=== PATIENT | male | born 1980 | race Caucasian/White ===

== ENCOUNTER 2022-03-23 17:13 | Outpatient (REF) | payer BC, SELFPAY ==
[2022-03-23 18:34] LABS: COMMENT (LAB VIEW ONLY) 66.85 mg/dL; Microalb ug/mg Crea 49.4 ug/mg Cr
== END 2022-03-23 17:14 | disposition home or self-care (01) ==
LOC: NCHCN 17:13
PROVIDERS: Visit Provider Registered Nurse
DX: E11.9 Type 2 diabetes mellitus without complications (principal)
CPT/HCPCS: 82043; 82570

== ENCOUNTER → 2022-03-30 02:47 | Outpatient (CLI) | payer BC, SELFPAY ==
--- NOTE | 2022-03-30 | DI.RAD_ITS ---
Exam(s) XR CERVICAL SPINE COMP 4-5V EXAM: XR CERVICAL SPINE COMP 4-5V CLINICAL HISTORY: NECK PAIN, M54.2,UPPER TRAP PAIN,. TECHNIQUE: 2D digital imaging was performed. COMPARISON: No exams were available for comparison FINDINGS: Five views: Two there is no evidence of fracture, listhesis, nor offset of the spinal laminar line. There is mil d disc space narrowing at C5-6 level. No disc space narrowing at C6-7 nor the other levels. Facet j oints unremarkable. No Luschka joint osteophytes. No cervical ribs. Bone density normal. No osseo us lesions. IMPRESSION: Mild disc space narrowing C5-6 level. DATA REPOSITORY: RADIATION DOSE DELIVERED:
== END ==
PROVIDERS: PCP Registered Nurse; Visit Provider Registered Nurse
DX: M54.2 Cervicalgia (principal); M50.322 Other cervical disc degeneration at C5-C6 level
CPT/HCPCS: 72050

== ENCOUNTER 2022-09-21 09:01 | Outpatient (REF) | payer BC, SELFPAY ==
[2022-09-21 16:24] LABS: HCT 42.8 % (40.0-50.0); HGB 14.5 g/dL (13.5-17.5); MCH 29.1 pg (27.0-33.0); MCHC 33.9 % (32.0-36.0); MCV 86 fL (80-95); MPV 11.5 fL (8.0-11.0); Platelet Count 249 10^3/uL (130-400); RBC 4.98 10^6/uL (4.36-5.78); RDW 12.2 % (11.8-14.1); RDW-SD 38.2 fL; WBC 7.88 10^3/uL (4.4-10.8)
[2022-09-21 16:51] LABS: ALT 71 U/L (16-63); AST 22 U/L (15-37); Albumin 3.9 g/dL (3.4-5.0); Alkaline Phosphatase 62 U/L (46-116); Anion Gap 6.5 mmol/L (3-11); BUN 23 mg/dL (7-18); Bilirubin, Total 0.3 mg/dL (0.2-1.0); CO2 27.5 mmol/L (21.0-32.0); CREATININE 1.3 mg/dL (0.70-1.30); Calcium 9.4 mg/dL (8.5-10.1); Chloride 98 mmol/L (98-107); Cholesterol 234 mg/dL (<200); Estimated GFR 71.22 (mL/min/1.73m2); Glucose 311 mg/dL (74-106); HDL Cholesterol 32 mg/dL (40-60); Potassium 4.4 mmol/L (3.5-5.1); Sodium 132 mmol/L (136-145); TSH (W/Ref FT4) 2.82 uIU/mL (0.36-3.74); Total Protein 7.8 g/dL (6.4-8.2); Triglyceride 596 mg/dL (<150)
[2022-09-21 17:05] LABS: LDL CHOLESTEROL 127 mg/dL (<100)
== END 2022-09-21 09:02 | disposition home or self-care (01) ==
LOC: NCHCN 09:01
PROVIDERS: PCP Registered Nurse; Visit Provider Family Medicine
DX: I10 Essential (primary) hypertension; E88.81 Metabolic syndrome and other insulin resistance; Z00.00 Encounter for general adult medical examination without abnormal findings
CPT/HCPCS: 80053; 80061; 83721; 85027; 84443

== ENCOUNTER 2023-06-20 15:07 | Outpatient (REF) | payer BC, SELFPAY ==
[2023-06-20 21:25] LABS: COMMENT (LAB VIEW ONLY) 50.84 mg/dL; Microalb ug/mg Crea 42.7 ug/mg Cr
[2023-06-20 21:29] LABS: ALT 62 U/L (16-63); AST 20 U/L (15-37); Albumin 4.3 g/dL (3.4-5.0); Alkaline Phosphatase 76 U/L (46-116); BUN 22 mg/dL (7-18); Bilirubin, Total 0.4 mg/dL (0.2-1.0); CREATININE 1.2 mg/dL (0.70-1.30); Chloride 101 mmol/L (98-107); Glucose 336 mg/dL (74-106); Potassium 4.6 mmol/L (3.5-5.1); Sodium 138 mmol/L (136-145); TSH 1.57 uIU/mL (0.36-3.74); Total Protein 8.4 g/dL (6.4-8.2)
[2023-06-20 21:41] LABS: Hemoglobin A1C 11.3 % (<5.7)
[2023-06-21 19:31] LABS: HBs Antibody, Quant 31.4 mIU/mL (See Note); Hepatitis B Surface Ab Positive (See Note)
[2023-06-21 19:40] LABS: Hepatitis B Surface Ag Negative (Negative)
[2023-06-21 20:10] LABS: Hep B Core Antibody Negative (Negative)
[2023-06-21 20:12] LABS: Hepatitis C Ab w Rflx HCV PCR Negative (Negative)
== END 2023-06-20 15:08 | disposition home or self-care (01) ==
LOC: NCHCN 15:07
PROVIDERS: PCP Registered Nurse; Visit Provider Family Medicine
DX: E11.9 Type 2 diabetes mellitus without complications (principal); E03.9 Hypothyroidism, unspecified; R74.01 Elevation of levels of liver transaminase levels
CPT/HCPCS: 80053; 86704; 86706; 86803; 87340; 82043; 82570; 83036; 84443

== ENCOUNTER 2023-09-23 17:56 | Emergency (ER) | payer BC, SELFPAY ==
[2023-09-23 17:58] VITALS: BP 168/91; PULSE 107; RESP 20; TEMP 36.2; O2SAT 100
--- NOTE | 2023-09-23 18:00 | RT.EKG_ITS ---
APPROVED REPORT Exam: Resting ECG Reason for Exam: left shoulder pain Patient Location: E HR:104 bpm ECG Measurements Heart Rate 104 AXIS IN 169 P 61 QRSd 105 QRS 12 QT 346 T 12 QTc 456 Conclusion Sinus tachycardia...rate> 99 sinus tachycardia, left axis, normal intervals, non ischemic
--- NOTE | 2023-09-23 18:00 | DI.RAD_ITS ---
Exam(s) XR CHEST 2V PA LATERAL EXAM: XR CHEST 2V PA LATERAL CLINICAL HISTORY: left shoulder/clavicular pain TECHNIQUE: 2D digital imaging was performed. Two views. COMPARISON: No exams were available for comparison FINDINGS: HEART: Normal size. Aorta: Not dilated. PULMONARY VASCULATURE: Normal. LUNGS: Clear. PLEURAL SPACE: No pleural effusion or pneumothorax. BONE:Unremarkable for age. Soft tissues: Unremarkable. IMPRESSION: No acute abnormality. DATA REPOSITORY: RADIATION DOSE DELIVERED:
--- NOTE | 2023-09-23 18:16 | ED.GENADUL_ITS ---
Discharge Plan Disposition Patient Disposition: Home Condition: Stable Discharge Details Clinical Impression: Trapezius strain Primary Care Provider: Patti Bragg ED Provider: Matt Horton Home Meds and New Rx's Prescriptions: New cyclobenzaprine 5 mg tablet 5 mg PO QHS PRN (Reason: muscle spasm) Qty: 7 0RF lidocaine [Lidoderm] 5 % adhesive patch,medicated 1 patch topical DAILY PRNQty: 15 0RF Rx Instructions: leave on most painful area for up to 12 hrs No Action levothyroxine [Levo-T] 112 mcg tablet 112 mcg PO DAILY metformin 500 mg tablet extended release 24 hr 1,000 mg PO BID hydrochlorothiazide 12.5 mg capsule 12.5 mg PO DAILY lisinopril 20 mg tablet 20 mg PO BID Januvia 100 mg tablet 100 mg PO DAILY ibuprofen 200 mg capsule 200 mg PO PRN PRN Patient Comments: Pt took 600 mg this AM and an additional 600 mg at 1400 today (09/23/23) Discharge Instructions Instructions: Muscle Strain (ED), Acute Neck Pain (ED) Additional Instructions: Please follow-up with your primary care physician. Please return to the emergency department for any worsening symptoms HPI General Date/Time Provider Initiated Documentation: 09/23/23 18:12 . HPI Narrative: 43-year-old male presents with 3 days of atraumatic left shoulder discomfort, discomfort located between shoulder and neck on left side, worse with movement of head and upper extremity; denies chest pain shortness of breath nausea vomiting fevers chills or other systemic signs of illness, denies trauma. Has been sleeping more on his left side. Was seen by physical therapy who manipulated clavicular joints. No abdominal pain. Related Data Home Medications Medication Instructions Recorded Confirmed cyclobenzaprine 5 mg tablet 5 mg PO QHS PRN muscle spasm #7 09/23/23 tabs hydrochlorothiazide 12.5 mg capsule 12.5 mg PO DAILY 09/23/23 09/23/23 ibuprofen 200 mg capsule 200 mg PO PRN PRN 09/23/23 09/23/23 levothyroxine 112 mcg tablet 112 mcg PO DAILY 09/23/23 09/23/23 (Levo-T) lidocaine 5 % topical patch 1 patch topical DAILY PRN #15 ea 09/23/23 (Lidoderm) lisinopril 20 mg tablet 20 mg PO BID 09/23/23 09/23/23 metformin 500 mg tablet,extended 1,000 mg PO BID 09/23/23 09/23/23 release 24 hr sitagliptin phosphate 100 mg 100 mg PO DAILY 09/23/23 09/23/23 tablet (Januvia) Previous Rx's Medication Instructions Recorded cyclobenzaprine 5 mg tablet 5 mg PO QHS PRN muscle spasm #7 09/23/23 tabs lidocaine 5 % topical patch 1 patch topical DAILY PRN #15 ea 09/23/23 (Lidoderm) Allergies Allergy/AdvReac Type Severity Reaction Status Date / Time lorazepam [From Ativan] AdvReac Intermediate Psychosis Verified 09/23/23 18:15 General Stated Complaint: Orthopedic PATRICIA: 3 Review of Systems Narrative: Review of Systems Constitutional: negative Eyes: negative ENT: negative Cardiovascular: negative Respiratory: negative Gastrointestinal: negative : negative Musculoskeletal: Left shoulder pain Skin: negative Neurologic: negative Psych: negative Exam Narrative Exam Narrative: Physical Examination General: alert, awake, cooperative, resting comfortably, no acute distress HEENT: normocephalic, atraumatic; PERRL, EOM intact, conjunctiva normal; no nasal discharge; moist mucous membranes, oral and pharyngeal mucosa normal, tolerating secretions Neck: supple, trachea midline; full ROM Chest: normal to inspection Respiratory: normal respiratory effort, speaking in full sentences Back: No midline spinal tenderness step-off crepitus or deformity Skin: no lesions, rashes or trauma appreciated Neuro: AAOx3, normal speech, moving all extremities; sensation and strength intact Extremities: Point tenderness mid left trapezius, no deformity crepitus step-off or ecchymosis; nontender clavicle nontender sternoclavicular joint, nontender acromiaolavicular joint, range of motion upper extremity intact however this worsens discomfort in trapezius region Psych: Appropriate mood and affect Course Vital Signs Vital signs: Vital Signs Temperature 36.2 C L 09/23/23 17:58 Pulse 107 H 09/23/23 17:58 Respiratory Rate 20 09/23/23 17:58 Blood Pressure 168/91 H 09/23/23 17:58 Pulse Oximetry 100 09/23/23 17:58 Temperature 36.2 C L 09/23/23 17:58 Temperature Source Temporal Artery Scan 09/23/23 17:58 Pulse 107 H 09/23/23 17:58 Respiratory Rate 20 09/23/23 17:58 Respiratory Effort Normal, Non-Labored 09/23/23 18:11 Blood Pressure 168/91 H 09/23/23 17:58 Blood Pressure Position Sitting 09/23/23 17:58 Pulse Oximetry 100 09/23/23 17:58 Oxygen Delivery Method Room Air 09/23/23 17:58 Oxygen Flow Rate 0 09/23/23 17:58 Pain Level 8 09/23/23 18:07 Medical Decision Making 43-year-old male presents with atraumatic left shoulder discomfort over the last 3 days, has been sleeping on his left side more frequently, point tenderness over mid trapezius left side, no overt evidence of trauma or infection. No neurologic deficits on examination. Patient is afebrile nontoxic, hypertension and tachycardia likely related to discomfort. Consider trapezius strain versus cervical radiculopathy versus sacral clavicular or acromioclavicular inflammation muscles consider spontaneous pneumothorax lower suspicion for pneumonia or malignancy, low suspicion for referred abdominal pain as abdomen soft nontender nondistended without nausea vomiting or other GI symptoms. Screening EKG sinus tachycardia nonischemic, will obtain screening x-ray trial of analgesia anti-inflammatory 21: 02 some improvement of range of motion of neck after Lidoderm and cyclobenzaprine however still with persistent discomfort in left trapezius region. Discussed possible therapeutic benefits of dexamethasone and/or lisa zodiazepine however patient had adverse reaction to benzodiazepine in the past in which he became hyperstimulated, patient also concerned about possible blood sugar fluctuations with steroids. For these reasons we will hold off further therapy here today. Counseled to try Benadryl at home given anticholinergic effects. Discussed at length the need to pursue further labs and/or imaging if symptoms persist and/or become worse. Again low suspicion for ACS PE or intra- abdominal process given history and physical. Must also consider underlying connective tissue disorder given multiple episodes of musculoskeletal complaints in the past. Encourage close follow-up with primary care physician. Strict return precautions given. Quality:SDOH Health Related Social Needs: No Data to Display PFSH All Active Problems (Updated 09/23/23 @ 21:05 by Matt Horton MD) Trapezius strain (Acute) Social History Smoking/Tobacco Use Status: Never Smoking risk assessment performed?: Yes Alcohol Intake: never Drug use: Daily Substance use type: marijuana Details: Daily edible use 09/23/23 (5mg) Do you feel safe at home: Yes Do you feel safe in your relationship?: Yes
[2023-09-23] MEDS: Lidocaine 5% Patch 1 PATCH TP ×2 (18:29→21:18)
[2023-09-23] MEDS: Cyclobenzaprine 10 MG TAB PO ×2 (18:29→21:18)
--- NOTE | 2023-09-23 18:51 | DI.VRAD_ITS ---
PROCEDURE INFORMATION: Exam: XR Chest Exam date and time: 09/23/2023 6:29 PM Age: 43 years old Clinical indication: Other: Left shoulder/clavicular pain, TECHNIQUE: Imaging protocol: Radiologic exam of the chest. Views: 2 views. COMPARISON: CR XR CERVICAL SPINE COMP 4-5V 30/03/2022 12:31 FINDINGS: Lungs: Unremarkable. No consolidation. Pleural spaces: Unremarkable. No pleural effusion. No pneumothorax. Heart/Mediastinum: Unremarkable. No cardiomegaly. Bones/joints: Unremarkable for patient's age. IMPRESSION: No acute cardiopulmonary findings. Dictated and Authenticated by: Radha Reyez MD. Ordering:TOYA Gutierrez MD
--- NOTE | 2023-09-23 19:27 | DI.RAD_ITS ---
Exam(s) XR CLAVICLE LT EXAM: XR CLAVICLE LT CLINICAL HISTORY: left shoulder pain TECHNIQUE: 2D digital imaging was performed. Two views COMPARISON: No exams were available for comparison FINDINGS: BONES: No acute fracture is present. No bony destructive lesion is seen. JOINTS: AC joint not widened. SOFT TISSUE: Unremarkable. IMPRESSION: Unremarkable radiographs of the left clavicle. DATA REPOSITORY: RADIATION DOSE DELIVERED:
--- NOTE | 2023-09-23 20:00 | DI.VRAD_ITS ---
PROCEDURE INFORMATION: Exam: XR Left Clavicle, Complete Exam date and time: 09/23/2023 7:11 PM Age: 43 years old Clinical indication: Patient HX: Left shoulder pain TECHNIQUE: Imaging protocol: Radiologic exam of the left clavicle. Complete exam. Views: Any number of views. COMPARISON: CR XR CHEST 2V PA LATERAL 09/23/2023 6:29 PM FINDINGS: Bones/joints: Left clavicle is intact with no acute left clavicular fracture detected. Soft tissues: Normal. IMPRESSION: No acute left clavicular fracture is detected. Dictated and Authenticated by: Denny Sher MD. Ordering:TOYA Gutierrez MD
[2023-09-23 20:45] VITALS: BP 140/79; PULSE 109; RESP 14; O2SAT 100
--- NOTE | 2023-09-24 12:54 | NUR.NOTE ---
Accessed chart for [facility]. Nursing Note:
== END 2023-09-23 21:18 | disposition home or self-care (01) ==
PROVIDERS: Emergency Provider Emergency Medicine; PCP Family Medicine
DX: S46.819A Strain of other muscles, fascia and tendons at shoulder and upper arm level, unspecified arm, initial encounter (principal); X58.XXXA Exposure to other specified factors, initial encounter
CPT/HCPCS: 93005; 96372; 99284; 71046; 73000; 93010; 99283